=== PATIENT | male | born 1970 | race Caucasian/White ===

== ENCOUNTER 2020-01-02 12:41 | Day surgery (SDC) | payer OTHER ==
[~2020-01-02] VITALS: Ht 193 cm; Wt 94.5 kg
[~2020-01-02 12:41] MED LIST: APIX5TAB PO; ASPI-515 PO; ATEN25TA PO; EPHEDRINE 50 MG/ML, 1ML IVPush PRN; FENTANYL PF 100 MCG/2ML IV PRN; HYDROmorphone 1 MG/ML, 1ML INJ IVPush PRN; LABETALOL 5MG/ML, 20ML IV PRN; MEPERIDINE/PF 25MG/0.5ML IVPush PRN; ONDANSETRON 2MG/ML, 2ML IVPush PRN; OXYcodone 5 MG/5 ML ORAL.SOL UDC PO PRN; PLEASE ENTER HEIGHT AND WEIGHT MC SCH; PROMETHAZINE 25 MG/ML, 1ML IVPush PRN; hydrALAzine 20 MG/ML, 1ML IV PRN
[2020-01-02] MEDS ORDERED: FENTANYL PF 100 MCG/2ML ONE (13:02)
[2020-01-02] MEDS ORDERED: MIDAZOLAM 1 MG/ML, 2ML ONE (13:02)
[2020-01-02] MEDS ORDERED: CHLORHEXIDINE 15 ML UDC MM STA (13:17)
[2020-01-02] MEDS ORDERED: LACTATED RINGERS 1,000 ML IV SCH (13:17)
[2020-01-02 13:21] VITALS: BP 144/80
[2020-01-02] MEDS ORDERED: No meds per pt (13:24)
[2020-01-02] MEDS ORDERED: ACETAMINOPHEN 500 MG TABLET PO STA (13:26)
[2020-01-02] MEDS ORDERED: GABAPENTIN 300 MG CAPSULE PO STA (13:26)
[2020-01-02] MEDS ORDERED: KETOROLAC 30 MG/1 ML ONE (15:25)
[2020-01-02] MEDS ORDERED: LIDOCAINE-MPF 2% ,5ML ONE (15:25)
[2020-01-02] MEDS ORDERED: ONDANSETRON 2MG/ML, 2ML ONE (15:56)
[2020-01-02] MEDS ORDERED: CEFAZOLIN 1,000 MG ONE (15:56)
[2020-01-02] MEDS ORDERED: PROPOFOL 10 MG/ML, 20ML ONE (15:56)
[2020-01-02] MEDS ORDERED: BUPIVACAINE/PF 0.5% ONE (15:56)
[2020-01-02] MEDS ORDERED: DEXAMETHASONE 4 MG/ML, 1ML ONE (15:56)
[2020-01-02] MEDS ORDERED: SUCCINYLCHOLINE 20 MG/ML, 10ML ONE (15:56)
== END 2020-01-02 17:55 | disposition home or self-care (01) ==
LOC: OUT 12:41
PROVIDERS: ATTEND Orthopaedic Surgery
DX: S86.011A Strain of right Achilles tendon, initial encounter (principal); Z11.59 Encounter for screening for other viral diseases; X58.XXXA Exposure to other specified factors, initial encounter; Y93.39 Activity, other involving climbing, rappelling and jumping off; Y92.89 Other specified places as the place of occurrence of the external cause; Y99.0 Civilian activity done for income or pay
CPT/HCPCS: 27650; 64445; 64447; J0330; J0690; J1100; J1885; J2250; J2405; J2704; J3010; J7120; U0001